=== PATIENT | male | born 1990 | race Caucasian/White ===

== ENCOUNTER 2019-07-14 11:20 | Emergency (ER) | payer OTHER ==
[2019-07-14 11:32] VITALS: BP 138/77
[2019-07-14 12:07] LABS: BILIRUBIN,URINE NEGATIVE (NEGATIVE); CLARITY,URINE CLEAR (CLEAR); GLUCOSE, URINE (UA) NEGATIVE (NEGATIVE); KETONES,URINE (UA) NEGATIVE (NEGATIVE); LEUKOCYTE ESTERASE, URINE NEGATIVE (NEGATIVE); NITRITE,URINE NEGATIVE (NEGATIVE); OCCULT BLOOD,URINE NEGATIVE (NEGATIVE); PROTEIN,URINE NEGATIVE (NEGATIVE); UROBILINOGEN,URINE 0.2 (NORMAL) E.U./dL (NORMAL)
--- NOTE | 2019-07-14 12:30 | ED Physician Documentation ---
History of Present Illness - Stated complaint Stated Complaint: LT SIDE PX - Chief complaint Chief Complaint: Abd Pain - Additonal information Additional information: This is a 29-year-old male who presents with some left inguinal pain.Several days ago patient tripped coming down the stairs, and he bruised his right tricep area. No head trauma, no neck pain. He did not obviously directly impact his abdomen, but he had some soreness in his abdomen/inguinal region. He saw his chiropractor today who thought it would be worth getting checked out for hernia. Patient has not noticed any specific bulges or lumps. No difficulty urinating, or defecating. No vomiting, no fever, at this time he is not having any discomfort. No testicular pain Review of Systems Constitutional: denies: Fever GI: denies: Abdominal Pain PD PAST MEDICAL HISTORY - Past Medical History Past Medical History: No - Past Surgical History Past Surgical History: Yes HEENT: Tonsil/Adenoidectomy - Present Medications Home Medications: Ambulatory Orders Medication Instructions Recorded Confirmed No Known Home Medications 07/14/19 07/14/19 - Allergies Allergies/Adverse Reactions: Allergies Allergy/AdvReac Type Severity Reaction Status Date / Time No Known Drug Allergies Allergy Verified 07/14/19 11:32 - Social History Does the pt smoke?: No Smoking Status: Never smoker Does the pt drink ETOH?: No Does the pt have substance abuse?: No - Immunizations Immunizations are current?: Yes PD ED PE NORMAL - Vitals Vital signs reviewed: Yes - General General: Alert and oriented X 3, No acute distress - HEENT HEENT: Atraumatic, PERRL - Cardiac Cardiac: RRR - Respiratory Respiratory: No respiratory distress - Abdomen Abdomen: Soft, Non tender, Non distended, Other (No masses in the inguinal region, no bruising externally, all 4 quadrants are completely nontender to deep palpation) - Male Male : Other (Penis is circumcised and normal in appearance without lesions, scrotum is normal in appearance, testicles are nontender. There are no hernias or bulges on palpation of the inguinal canal when patient is lying down or standing up and performing valsalva) - Derm Derm: Warm and dry - Extremities Extremities: No deformity, Other (Mild bruising to the right tricep area, full range of motion of his extremities no bony tenderness) - Neuro Neuro: Alert and oriented X 3, No motor deficit, No sensory deficit, Normal speech - Psych Psych: Normal mood, Normal affect Results - Vitals Vitals: Vital Signs - 24 hr 07/14/19 11:29 Temperature 36.7 C Heart Rate 99 Respiratory 18 Rate Blood Pressure 138/77 H O2 Saturation 98 Oxygen O2 Source Cool Mist - Labs Labs: Laboratory Tests 07/14/19 11:46 Urine Color YELLOW Urine Clarity CLEAR Urine pH 8.0 H Ur Specific Leslie 1.015 Urine Protein NEGATIVE Urine Glucose (UA) NEGATIVE Urine Ketones NEGATIVE Urine Occult Blood NEGATIVE Urine Nitrite NEGATIVE Urine Bilirubin NEGATIVE Urine Urobilinogen 0.2 (NORMAL) Ur Leukocyte Esterase NEGATIVE Ur Microscopic Review NOT INDICATED Urine Culture Comments NOT INDICATED PD MEDICAL DECISION MAKING - ED course Complexity details: considered differential (Hernia, muscle strain, bruising, diverticulitis, testicular torsion) ED course: Patient is well-appearing on exam, his abdomen is atraumatic in appearance. His testicular exam is also normal, I do not feel signs of a hernia today. His urinalysis is negative for infection. Given that patient is asymptomatic at this time and has a completely nontender abdomen I discussed with him the option of labs, he would prefer to defer these and I think this is a very reasonable course of action given his lack of symptoms, they would likely be unrevealing. I think is most likely that he has a muscle strain, I discussed that he should treat with ibuprofen Tylenol and avoiding straining or heavy lifting. If he notices any bulges, or is having any persistent symptoms after the next week of supportive care, he should follow-up with his primary care provider. I also discussed return precautions if he has any worsening abdominal pain, fever, vomiting, or other concerning symptoms. Patient agrees with this plan and was discharged home. Departure - Departure Disposition: 01 Home, Self Care Clinical Impression: Left inguinal pain Condition: Good Follow-Up: Your,PCP [Other] - As Needed Comments: I do not see signs of an obvious hernia or serious abdominal injury today. If you are having persistent symptoms that are not getting better over the next week, You should follow-up with your regular doctor if you are having any persistent symptoms. If you are having worsening symptoms such as vomiting, severe abdominal pain, fever, or you are noticing large painful bulges or masses in your scrotum or groin, return to the emergency department. If you notice a small lump in your scrotum which comes and goes depending on position or straining, this may be a hernia, and may be further evaluated by your primary care/regular doctor. A reasonable first test to start with would be an ultrasound of the scrotum. You may take Tylenol and ibuprofen for discomfort.
== END 2019-07-14 12:34 | disposition home or self-care (01) ==
LOC: ED 11:20
DX: R10.32 Left lower quadrant pain (principal); S40.021A Contusion of right upper arm, initial encounter; W10.8XXA Fall (on) (from) other stairs and steps, initial encounter; Y93.89 Activity, other specified
CPT/HCPCS: 81001; 81003; 87086; 99282; 99283